=== PATIENT | male | born 1995 | race Caucasian/White ===

== ENCOUNTER 2016-09-03 01:31 | Emergency (ER) | payer OTHER ==
[~2016-09-03] VITALS: Ht 181.6 cm; Wt 77.2 kg
[2016-09-03 01:32] VITALS: TEMP 36.5; O2SAT 98; Ht 181.6 cm; Wt 77.2 kg
--- NOTE | 2016-09-03 01:48 | EMERGENCY ROOM VISIT NOTE ---
History Report prepared by Ricky: Taniya Connolly Under the Supervision of: Dr. Tom Clemente D.O. 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 The patient states that he woke up feeling groggy and lightheaded and when going back from the bathroom he fell into a dresser and possibly a seizure like episode lasting 15 seconds that the patients roommate told him about. He states he did not remember the seizing episode but remembers everything before and after the episode. The roommate told him that he had some like spastic movements during the episode. The patient states that the last two nights he took a tab of Seroquel to aid in his sleep. The patient states that he had some beers and marijuana earlier in the night. 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 Review of Systems See HPI for pertinent positives and negatives. A total of ten systems were reviewed and were otherwise negative. Past Medical & Surgical Medical Problems: (1) Attention deficit disorder (ADD) Family History Patient reports no known family medical history. Social History Marital Status: single Housing Status: lives with roommate Occupation Status: student Current/Historical Medications Scheduled Lisdexamfetamine Dimesylate (Vyvanse), 50 MG PO DAILY Quetiapine Fumarate (Seroquel), 25 MG PO HS Allergies Coded Allergies: Cat Dander (Verified Allergy, Unknown, THROAT SWELLS, 09/03/16) Nut Tree (Verified Allergy, Unknown, THROAT SWELLING, 09/03/16) Physical Exam Vital Signs Date Time Temp Pulse Resp B/P Pulse Ox O2 Delivery O2 Flow Rate FiO2 09/03/16 01:40 77 09/03/16 01:32 98 Room Air 09/03/16 01:32 36.5 71 22 122/75 99 Room Air Physical Exam GENERAL: Awake, alert, well-appearing, in no distress HENT: Normocephalic, atraumatic. Oropharynx unremarkable. EYES: Normal conjunctiva. Sclera non-icteric. NECK: Supple. No nuchal rigidity. FROM. No JVD. RESPIRATORY: Clear to auscultation. CARDIAC: Regular rate, normal rhythm. Extremities warm and well perfused. Pulses equal. ABDOMEN: Soft, non-distended. No tenderness to palpation. No rebound or guarding. No masses. RECTAL: Deferred. MUSCULOSKELETAL: Chest examination reveals no tenderness. The back is symmetrical on inspection without obvious abnormality. There is no CVA tenderness to palpation. No joint edema. LOWER EXTREMITIES: Calves are equal size bilaterally and non-tender. No edema. No discoloration. NEURO: Normal sensorium. No sensory or motor deficits noted. SKIN: No rash or jaundice noted. Medical Decision & Procedures Laboratory Results 09/03/16 01:27 Red Blood Count 5.37, Mean Corpuscular Volume 87.2, Mean Corpuscular Hemoglobin 30.5, Mean Corpuscular Hemoglobin Concent 35.0, Mean Platelet Volume 11.7, Neutrophils (%) (Auto) 68.1, Lymphocytes (%) (Auto) 22.8, Monocytes (%) (Auto) 5.7, Eosinophils (%) (Auto) 2.6, Basophils (%) (Auto) 0.5, Neutrophils # (Auto) 10.00, Lymphocytes # (Auto) 3.35, Monocytes # (Auto) 0.84, Eosinophils # (Auto) 0.38, Basophils # (Auto) 0.07 09/03/16 01:27 Test 09/03/16 01:27 White Blood Count 14.68 K/uL (4.8-10.8) Red Blood Count 5.37 M/uL (4.7-6.1) Hemoglobin 16.4 g/dL (14.0-18.0) Hematocrit 46.8 % (42-52) Mean Corpuscular Volume 87.2 fL (80-100) Mean Corpuscular Hemoglobin 30.5 pg (25-34) Mean Corpuscular Hemoglobin Concent 35.0 g/dl (32-36) Platelet Count 211 K/uL (130-400) Mean Platelet Volume 11.7 fL (7.4-10.4) Neutrophils (%) (Auto) 68.1 % Lymphocytes (%) (Auto) 22.8 % Monocytes (%) (Auto) 5.7 % Eosinophils (%) (Auto) 2.6 % Basophils (%) (Auto) 0.5 % Neutrophils # (Auto) 10.00 K/uL (1.4-6.5) Lymphocytes # (Auto) 3.35 K/uL (1.2-3.4) Monocytes # (Auto) 0.84 K/uL (0.11-0.59) Eosinophils # (Auto) 0.38 K/uL (0-0.5) Basophils # (Auto) 0.07 K/uL (0-0.2) RDW Standard Deviation 42.9 fL (36.4-46.3) RDW Coefficient of Variation 13.4 % (11.5-14.5) Immature Granulocyte % (Auto) 0.3 % Immature Granulocyte # (Auto) 0.04 K/uL (0.00-0.02) Anion Gap 6.0 mmol/L (3-11) Est Creatinine Clear Calc Drug Dose 116.8 ml/min Estimated GFR () 112.2 Estimated GFR (Non- 96.8 BUN/Creatinine Ratio 14.6 (10-20) Calcium Level 9.3 mg/dl (8.5-10.1) Total Bilirubin 0.1 mg/dl (0.2-1) Aspartate Amino Transf (AST/SGOT) 23 U/L (15-37) Alanine Aminotransferase (ALT/SGPT) 28 U/L (12-78) Alkaline Phosphatase 98 U/L (45-117) Total Protein 8.1 gm/dl (6.4-8.2) Albumin 4.3 gm/dl (3.4-5.0) Globulin 3.8 gm/dl (2.5-4.0) Albumin/Globulin Ratio 1.1 (0.9-2) Laboratory results reviewed by me Medications Administered Medications (Trade) Dose Ordered Sig/Jn Route Start Time Stop Time Status Last Admin Dose Admin Sodium Chloride (Nss 1000ml) 1,000 ml @ 999 mls/hr Q1H1M STAT IV 09/03/16 02:01 09/03/16 03:01 09/03/16 02:06 999 MLS/HR ECG Indication: syncope Rate (beats per minute): 73 Rhythm: normal sinus Findings: no acute ischemic change, other (Normal axis, normal interval ) ED Course 0137: At this time the patient was evaluated by the medical student. The student s findings were discussed with me. We discussed a possible treatment plan and differential diagnoses for the patient. 0156: The patient was evaluated in room B12B. A complete history and physical exam was performed. 0201: Ordered Sodium Chloride 1,000 ml @ 999 mls/hr IV. 0230: I reevaluated the patient and he feels thirsty and hungry and some lower left sided chest pain. The patient's vitals were stable on revaluation. Medical Decision Differential diagnoses include but are not limited to; medication reaction, anxiety, cardiac dysrhythmia, dehydration, near syncope. Resting in no distress; patient has no signs of cardiac dysrhythmia as a normal heart rate and normal blood pressure. Patient is nonfocal neurologically. Patient states to me that he is hungry and thirsty. I discussed the workup with the patient at bedside Impression Primary Impression: Syncope Additional Impression: Medication adverse effect Scribe Attestation The scribe's documentation has been prepared under my direction and personally reviewed by me in its entirety. I confirm that the note above accurately reflects all work, treatment, procedures, and medical decision making performed by me. Departure Information Dispostion Home / Self-Care Forms HOME CARE DOCUMENTATION FORM, IMPORTANT VISIT INFORMATION Patient Instructions ED Drug React Adverse Other, ED Near Syncope Unkn, [facility] Problem Qualifiers Primary Impression: Syncope Syncope type: unspecified Qualified Codes: R55 - Syncope and collapse Additional Impression: Medication adverse effect Encounter type: initial encounter Qualified Codes: T88.7XXA - Unspecified adverse effect of drug or medicament, initial encounter
[2016-09-03] MEDS ORDERED: SODIUM CHLORIDE 0.9% 1000ML 1,000 ML IV STA (02:01)
[2016-09-03 02:09] LABS: BASO % 0.5 %; BASO ABS # 0.07 K/uL (0-0.2); COMPLETE YES; EOS % 2.6 %; HEMATOCRIT 46.8 % (42-52); IG% 0.3 %; LYMPH % 22.8 %; LYMPH ABS # 3.35 K/uL (1.2-3.4); MEAN CELL VOLUME 87.2 fL (80-100); MEAN CORPUSCULAR HEMOGLOBIN 30.5 pg (25-34); MEAN PLATELET VOLUME 11.7 fL (7.4-10.4); MONO % 5.7 %; NEUT % 68.1 %; PLATELET COUNT 211 K/uL (130-400); RED BLOOD COUNT 5.37 M/uL (4.7-6.1); WHITE BLOOD COUNT 14.68 K/uL (4.8-10.8)
[2016-09-03 02:18] LABS: BUN/CREATININE RATIO 14.6 (10-20); CALCIUM 9.3 mg/dl (8.5-10.1); CREATININE 1.1 mg/dl (0.60-1.40); POTASSIUM 3.9 mmol/L (3.5-5.1)
[2016-09-03 02:20] LABS: ALB/GLOB RATIO 1.1 (0.9-2)
[2016-09-03] MEDS ORDERED: LISD50CA PO (02:40)
[2016-09-03] MEDS ORDERED: SRQ/50 PO (02:40)
[2016-09-03 03:02] VITALS: BP 127/66; PULSE 80; O2SAT 98
== END 2016-09-03 03:03 | disposition home or self-care (01) ==
LOC: EDBD 01:31 → C.EDB 01:33
DX: R55 Syncope and collapse (principal); T88.7XXA Unspecified adverse effect of drug or medicament, initial encounter; F90.9 Attention-deficit hyperactivity disorder, unspecified type; Z79.899 Other long term (current) drug therapy

== ENCOUNTER 2016-09-04 02:32 | Emergency (ER) | payer OTHER ==
[~2016-09-04] VITALS: Ht 182.9 cm; Wt 77.9 kg
[~2016-09-04 02:32] MED LIST: LISD50CA PO; SRQ/50 PO
[2016-09-04 02:34] VITALS: Ht 182.9 cm; Wt 77.9 kg
[2016-09-04 03:23] LABS: BASO % 0.9 %; BASO ABS # 0.09 K/uL (0-0.2); COMPLETE YES; EOS % 4.3 %; HEMATOCRIT 42.2 % (42-52); IG% 0.4 %; LYMPH % 41.2 %; MEAN CELL VOLUME 87.9 fL (80-100); MEAN CORPUSCULAR HEMOGLOBIN 30.4 pg (25-34); MEAN CORPUSCULAR HGB CONC 34.6 g/dl (32-36); MEAN PLATELET VOLUME 11.2 fL (7.4-10.4); MONO % 6.8 %; NEUT % 46.4 %; PLATELET COUNT 189 K/uL (130-400); WHITE BLOOD COUNT 9.71 K/uL (4.8-10.8)
[2016-09-04 03:39] LABS: ALT/SGPT 25 U/L (12-78); AST/SGOT 14 U/L (15-37); BLOOD UREA NITROGEN 15 mg/dl (7-18); BUN/CREATININE RATIO 16.2 (10-20); CALCIUM 8.6 mg/dl (8.5-10.1); CARBON DIOXIDE 29 mmol/L (21-32); CHLORIDE 107 mmol/L (98-107); CREATININE 0.93 mg/dl (0.60-1.40); GLUCOSE 94 mg/dl (70-99); POTASSIUM 3.7 mmol/L (3.5-5.1); SODIUM 142 mmol/L (136-145)
[2016-09-04 03:45] LABS: ALKALINE PHOSPHATASE 83 U/L (45-117)
--- NOTE | 2016-09-04 03:52 | EMERGENCY ROOM VISIT NOTE ---
History First contact with patient: 02:44 Chief Complaint: CHEST PAIN Stated Complaint: CHEST PAIN, ARM PAIN Nursing Triage Summary: Patient states "Last night I had a seizure, which is the first one ever in my life. Tonight I was trying to go to bed and I got chest pains on the left side and in my left leg. I feel like my heart is going up into my throat." Patient reports shortness of breath. History of Present Illness The patient is a 20 year old male who presents to the Emergency Room with complaints of chest pain and muscle cramps and tingling for the past day who started Seroquel 2 days ago who had a syncopal episode last night and was evaluated in the ER. Patient states he is on Seroquel for sleep aid. His psychiatrist tomorrow this medication. Patient denies any prior psychiatric history. Patient denies dyspnea, suicidal or homicidal ideations, abdominal pain, fever, chills, cold symptoms, delusions, hallucinations. He did smoke marijuana yesterday and had a few beers. No other drug use. Review of Systems See HPI for pertinent positives & negatives. A total of 10 systems reviewed and were otherwise negative. Past Medical/Surgical History Medical Problems: (1) Attention deficit disorder (ADD) Family History Patient reports no known family medical history. Social History Smoking Status: Never Smoker Marital Status: single Housing Status: lives with roommate Occupation Status: student Current/Historical Medications Scheduled Lisdexamfetamine Dimesylate (Vyvanse), 50 MG PO DAILY Quetiapine Fumarate (Seroquel), 25 MG PO HS Allergies Coded Allergies: Cat Dander (Verified Allergy, Unknown, THROAT SWELLS, 09/04/16) Nut Tree (Verified Allergy, Unknown, THROAT SWELLING, 09/04/16) Physical Exam Vital Signs Date Time Temp Pulse Resp B/P Pulse Ox O2 Delivery O2 Flow Rate FiO2 09/04/16 03:19 63 18 115/83 99 Room Air 09/04/16 03:11 Room Air 09/04/16 03:11 Room Air 09/04/16 02:48 63 09/04/16 02:34 36.6 70 18 135/75 97 Room Air Physical Exam VITALS: Vitals are noted on the nurse's note and reviewed by myself. Vital signs stable. GENERAL: White male, in no acute distress, nondiaphoretic, well-developed well- nourished. SKIN: The skin was without rashes, erythema, edema, or bruising. There is no tenting of the skin. Capillary reflex less than 2 seconds. HEAD: Normocephalic atraumatic. EARS: External auditory canals clear, tympanic membranes pearly diaz without erythema or effusion bilaterally. EYES: Pupils equal round and reactive to light and accommodation. Conjunctivae without injection, sclerae without icterus. Extraocular movements intact. NOSE: Patent, turbinates without inflammation or discharge. MOUTH: Mucous membranes moist. Pharynx without erythema or exudate. Uvula midline. Airway patent. Tongue does not deviate. NECK: Supple without nuchal rigidity. No lymphadenopathy. No thyromegaly. Cervical spine is nontender. No JVD. HEART: Regular rate and rhythm without murmurs gallops or rubs. LUNGS: Clear to auscultation bilaterally without wheezes, rales or rhonchi. No dullness to percussion. No retractions or accessory muscle use. ABDOMEN: Positive bowel sounds x 4. Normal tympanic percussion. Soft, nontender, without masses or organomegaly. Sanders sign negative. No guarding or rebound tenderness. MUSCULOSKELETAL: No muscle atrophy, erythema, or edema noted. NEURO: Patient was alert and oriented to person place and time. Normal sensation to light and sharp touch. No focal neurological deficits. Psych: Cooperative and pleasant Medical Decision & Procedures Laboratory Results 09/04/16 03:10 Red Blood Count 4.80, Mean Corpuscular Volume 87.9, Mean Corpuscular Hemoglobin 30.4, Mean Corpuscular Hemoglobin Concent 34.6, Mean Platelet Volume 11.2, Neutrophils (%) (Auto) 46.4, Lymphocytes (%) (Auto) 41.2, Monocytes (%) (Auto) 6.8, Eosinophils (%) (Auto) 4.3, Basophils (%) (Auto) 0.9, Neutrophils # (Auto) 4.50, Lymphocytes # (Auto) 4.00, Monocytes # (Auto) 0.66, Eosinophils # (Auto) 0.42, Basophils # (Auto) 0.09 09/04/16 03:10 Test 09/04/16 03:10 White Blood Count 9.71 K/uL (4.8-10.8) Red Blood Count 4.80 M/uL (4.7-6.1) Hemoglobin 14.6 g/dL (14.0-18.0) Hematocrit 42.2 % (42-52) Mean Corpuscular Volume 87.9 fL (80-100) Mean Corpuscular Hemoglobin 30.4 pg (25-34) Mean Corpuscular Hemoglobin Concent 34.6 g/dl (32-36) Platelet Count 189 K/uL (130-400) Mean Platelet Volume 11.2 fL (7.4-10.4) Neutrophils (%) (Auto) 46.4 % Lymphocytes (%) (Auto) 41.2 % Monocytes (%) (Auto) 6.8 % Eosinophils (%) (Auto) 4.3 % Basophils (%) (Auto) 0.9 % Neutrophils # (Auto) 4.50 K/uL (1.4-6.5) Lymphocytes # (Auto) 4.00 K/uL (1.2-3.4) Monocytes # (Auto) 0.66 K/uL (0.11-0.59) Eosinophils # (Auto) 0.42 K/uL (0-0.5) Basophils # (Auto) 0.09 K/uL (0-0.2) RDW Standard Deviation 43.6 fL (36.4-46.3) RDW Coefficient of Variation 13.4 % (11.5-14.5) Immature Granulocyte % (Auto) 0.4 % Immature Granulocyte # (Auto) 0.04 K/uL (0.00-0.02) Anion Gap 6.0 mmol/L (3-11) Est Creatinine Clear Calc Drug Dose 140.3 ml/min Estimated GFR () 137.4 Estimated GFR (Non- 118.6 BUN/Creatinine Ratio 16.2 (10-20) Calcium Level 8.6 mg/dl (8.5-10.1) Total Bilirubin 0.1 mg/dl (0.2-1) Direct Bilirubin < 0.1 mg/dl (0-0.2) Aspartate Amino Transf (AST/SGOT) 14 U/L (15-37) Alanine Aminotransferase (ALT/SGPT) 25 U/L (12-78) Alkaline Phosphatase 83 U/L (45-117) Total Creatine Kinase 315 U/L (39-308) Troponin I < 0.015 ng/ml (0-0.045) Total Protein 7.1 gm/dl (6.4-8.2) Albumin 3.6 gm/dl (3.4-5.0) Lipase 111 U/L (73-393) ED Course Prior records/ancillary studies reviewed. Triage Nursing notes reviewed. The patient's history was concerning for chest pain. Differential diagnosis: Etiologies such as side effect of medication, substance abuse, cardiac ischemia , aortic dissection, pulmonary embolism, pneumonia, pneumothorax, musculoskeletal, infections, pericarditis, myocarditis, esophageal rupture, gastrointestinal, as well as others were entertained. Physical examination: As above. ER treatment provided: By mouth fluids On reassessment the patient felt better. Diagnostic interpretation by me: The electrocardiogram was negative for pathologic change. Normal sinus, normal intervals, no acute ST-T wave changes. Impression normal sinus rhythm interpreted by myself The labs revealed troponin Imaging studies: Chest x-ray no acute consolidation, pneumothorax or free air per my interpretation Exam and history seem consistent with noncardiac chest pain. This could be side effect of Seroquel. He was advised to stop this medication. He is advised no drug use or illegal alcohol use. He was strongly encouraged to try melatonin or sleepy time tea as a sleep aid. He is advised follow-up with psychiatrist at health services in a few days or here in the ER sooner for chest pain, difficulty breathing, fevers, delusions, hallucinations, suicidal or homicidal ideations, worsening signs or symptoms or as needed. By the evaluation outlined above emergent etiologies such as cardiac ischemia, aortic dissection, pulmonary embolism, pneumonia, pneumothorax, infections, pericarditis, myocarditis, gastrointestinal, as well as others were deemed relatively unlikely. The pt informed about the findings as listed above. All questions were answered and pleased with the treatment. Return instructions were outlined and the patient was discharged in stable condition. Referral: The patient was referred back to primary care physician for follow-up in 2 to 3 days for a recheck of the current condition. Case reviewed with my attending Medical Decision As above Impression Primary Impression: Non-cardiac chest pain Additional Impression: Medication side effect Departure Information Dispostion Home / Self-Care Condition GOOD Referrals No Doctor, Assigned (PCP) Patient Instructions [facility] Additional Instructions Recommend stop the Seroquel. Recommend no illegal drug use. Recommend no underage drinking of alcohol. Try melatonin or sleepy time tea as a sleep aid. Ibuprofen(Motrin, Advil) may be used for fever or pain. Use 600mg every six hours as needed. Take with food. Avoid using more than 2400mg in a 24 hour period. Do not use 2400mg per day for more than three consecutive days without physician direction. Prolonged inappropriate use can lead to stomach upset or ulcers. (AND/OR) Acetaminophen(Tylenol) may be used for fever or pain. Use 1000mg every six hours as needed. Avoid using more than 3000mg in a 24 hour period. Rest and drink plenty of fluids as tolerated. Continue current medications. Avoid strenuous activities and anything that worsens your pain. Resume normal activities once your symptoms resolve. Return to the ER immediately for worsening or persistent chest pain, abdominal pain, vomiting, fevers, chest pains, difficulty breathing, worsening of your condition, or as needed. Follow up with your primary physician in 2-3 days for a recheck of your current condition. Problem Qualifiers
[2016-09-04 04:11] VITALS: BP 121/75; PULSE 62; TEMP 36.6; O2SAT 98
--- NOTE | 2016-09-04 07:33 | DIAGNOSTIC IMAGING REPORT ---
CHEST ONE VIEW PORTABLE CLINICAL HISTORY: Chest pain. COMPARISON STUDY: No previous studies for comparison. FINDINGS: Lung volumes are normal. There is no consolidation to suggest pneumonia. There is no evidence of pulmonary edema. Cardiac size is normal. Mediastinal contours are normal. No pneumothorax or pleural effusion is identified. IMPRESSION: No acute cardiopulmonary findings. Electronically signed by: Cedric Kaur M.D. 09/04/2016 7:32 AM Dictated Date/Time: 09/04/2016 7:32 AM
== END 2016-09-04 04:12 | disposition home or self-care (01) ==
LOC: C.EDB 02:33
DX: R07.9 Chest pain, unspecified (principal); T88.7XXA Unspecified adverse effect of drug or medicament, initial encounter; X58.XXXA Exposure to other specified factors, initial encounter; F90.9 Attention-deficit hyperactivity disorder, unspecified type; Z79.899 Other long term (current) drug therapy; Z91.018 Allergy to other foods; Z91.09 Other allergy status, other than to drugs and biological substances

== ENCOUNTER → 2017-11-11 | Outpatient (CLI) | payer OTHER ==
--- NOTE | 2017-11-11 08:30 | DIAGNOSTIC IMAGING REPORT ---
SOFT TISS HEAD/NECK-THYROID CLINICAL HISTORY: 21 years-old Male with THYROID NODULE. COMPARISON: None available TECHNIQUE: Multiple real time sonographic images of the thyroid were obtained accessing diaz scale appearance and color doppler flow. FINDINGS: MEASUREMENTS: Right lobe: 5.3 x 1.8 x 1.7 cm Left lobe: 4.7 x 1.1 x 1.4 cm Isthmus: 0.4 cm PARENCHYMA: The thyroid parenchymal echotexture is homogeneous. NODULES: No discrete nodules are appreciated. The area of palpable concern within the right neck correlates with a normal-appearing right submandibular gland. IMPRESSION: Homogeneous appearance of the thyroid without evidence of thyroid nodule. The above report was generated using voice recognition software. It may contain grammatical, syntax or spelling errors. Electronically signed by: Carlos A Banuelos M.D. 11/11/2017 8:29 AM Dictated Date/Time: 11/11/2017 8:25 AM
== END | disposition home or self-care (01) ==
LOC: C.ULTRBC 07:58
PROVIDERS: ATTEND Family Medicine
DX: R22.1 Localized swelling, mass and lump, neck (principal)

== ENCOUNTER → 2018-01-07 | Day surgery (SDC) | payer OTHER ==
[2017-12-22 11:14] VITALS: Ht 182.9 cm; Wt 79.5 kg
[~2018-01-07] VITALS: Ht 182.9 cm; Wt 79.5 kg
[~2018-01-07] MED LIST changes: +CEFAZOLIN 2000MG IV PUSH 15 ML IV SCH; +FENTANYL CITRATE INJ 50 MCG/1 ML 2 ML VIAL ONE; +LACTATED RINGER'S 1000ML 1,000 ML IV SCH; +LIDOCAINE HCL 2% 2 ML VIAL (20MG/ML) ONE; -LISD50CA PO; +MIDAZOLAM HCL 1 MG/ML 2ML VIAL ONE; +PROPOFOL IV EMULSION 10 MG/ML 20 ML VIAL ONE; -SRQ/50 PO; +VYV30 PO
== END | disposition home or self-care (01) ==
LOC: EDSTATUS 08:15 → C.PAT 16:18
PROVIDERS: ATTEND Orthopaedic Surgery
DX: S43.401A Unspecified sprain of right shoulder joint, initial encounter (principal); Z53.9 Procedure and treatment not carried out, unspecified reason; X58.XXXA Exposure to other specified factors, initial encounter